=== PATIENT | female | born 2000 | race Caucasian/White ===

== ENCOUNTER → 2023-07-04 10:10 | Outpatient (REF) | payer OTHER, SELFPAY | LOC: HWRAD 10:10 | PROVIDERS: ATTENDING PHYSICIAN Nurse Practitioner Adult Health; FAMILY PHYSICIAN Internal Medicine | DX: R10.2 Pelvic and perineal pain (principal) | CPT/HCPCS: 76830; 76856 ==

== ENCOUNTER → 2023-07-13 14:51 | Outpatient (REF) | payer OTHER, SELFPAY | LOC: WDC 14:51 | PROVIDERS: ATTENDING PHYSICIAN Nurse Practitioner Adult Health; FAMILY PHYSICIAN Internal Medicine | DX: R92.8 Other abnormal and inconclusive findings on diagnostic imaging of breast (principal) | CPT/HCPCS: 76642 ==

== ENCOUNTER 2023-09-14 06:10 | Day surgery (SDC) | payer OTHER, SELFPAY ==
[2023-09-14 13:28] VITALS: BMI 44.8
[2023-09-14 13:29] VITALS: BP 133/98; BMI 44.8
[2023-09-14 15:30] VITALS: BP 139/88
[2023-09-14 15:45] VITALS: BP 108/88
[2023-09-14 16:00] VITALS: BP 131/86
== END 2023-09-14 16:07 | disposition home or self-care (01) ==
LOC: GI 06:10
PROVIDERS: ATTENDING PHYSICIAN Surgery
DX: R10.30 Lower abdominal pain, unspecified (principal); R63.4 Abnormal weight loss; K62.5 Hemorrhage of anus and rectum; K64.9 Unspecified hemorrhoids; K52.9 Noninfective gastroenteritis and colitis, unspecified
CPT/HCPCS: 45380; 88305